=== PATIENT | male | born 1995 | race Two or more races ===

== ENCOUNTER 2018-02-09 10:59 | Emergency (ER) | payer SELFPAY ==
[2018-02-09 11:12] VITALS: BP 119/72; PULSE 67; TEMP 98.1; BMI 25.8
[2018-02-09] MEDS ORDERED: IBUPROFEN 400 MG TABLET (FP) PO ONE ×2 (12:04→12:07)
--- NOTE | 2018-02-09 12:12 | PDOC ---
History of Present Illness - General Chief Complaint: Injury Stated Complaint: SWOLLEN RT ARM Time Seen by Provider: 02/09/18 11:28 History Source: Patient - History of Present Illness Occurred: reports: other Severity: reports: moderate Upper Extremity Pain Location: right: forearm Past History - Past Medical History Allergies/Adverse Reactions: Allergies Allergy/AdvReac Type Severity Reaction Status Date / Time No Known Allergies Allergy Verified 02/09/18 11:12 Home Medications: Ambulatory Orders NK [No Known Home Medication] 12/31/14 COPD: No DVT: No - Immunization History Immunization Up to Date: Yes - Suicide/Smoking/Psychosocial Hx Smoking History: Never smoked Have you smoked in the past 12 months: No Information on smoking cessation initiated: No Hx Alcohol Use: No Drug/Substance Use Hx: No Substance Use Type: Alcohol Review of Systems - Review of Systems Musculoskeletal: No: Joint Pain, Joint Swelling, Muscle Weakness *Physical Exam - Vital Signs Last Vital Signs Temp Pulse Resp BP Pulse Ox 98.1 F 67 18 119/72 99 02/09/18 11:10 02/09/18 11:10 02/09/18 11:10 02/09/18 11:10 02/09/18 11:10 - Physical Exam General Appearance: Yes: Appropriately Dressed. No: Apparent Distress HEENT: positive: Normal Voice Neck: positive: Supple Respiratory/Chest: negative: Respiratory Distress Extremity: positive: Normal Inspection, Normal Range of Motion, Tender, Other (+ ttp to dorsal aspect of R mid/proximal arm, no erythema/swelling, FROMI, NVI). negative: Swelling Medical Decision Making - Medical Decision Making 02/09/18 12:08 22-year-old male, no significant history, here with right arm pain for 2 days. Pain located to extensor aspect of R arm, 7/10 and worse with lifting. No sensory changes, weakness, neck pain. Not taking anything for pain. Patient denies any injury but states he left weights almost daily and might have been lifting more weights than usual recently. Patient well-appearing and stable with reproducible tenderness along the dorsal aspect of right mid to proximal arm that possibly represents muscle strain versus ? tendinitis. Will dc with [id number] pain meds and instruction to rest and refrain from lifting weights until pain has resolved. Patient given orthopedic referral to follow- up as needed 02/09/18 12:12 *DC/Admit/Observation/Transfer Diagnosis at time of Disposition: Right arm pain - Discharge Dispostion Disposition: HOME Condition at time of disposition: Good - Referrals Referrals: Tyrel Dee MD [Staff Physician] - - Patient Instructions Printed Discharge Instructions: Forearm Muscle Strain Additional Instructions: Pain is possibly due to muscle or tendon strain in your arm. Treatment is pain medication like Motrin or Tylenol and resting the extremity until pain has resolved. If pain persist after 2 weeks, please make an appointment to see Dr. Dee of orthopedics for further evaluation - Post Discharge Activity
== END 2018-02-09 12:13 | disposition home or self-care (01) ==
LOC: JERFT 10:59
DX: S56.811A Strain of other muscles, fascia and tendons at forearm level, right arm, initial encounter (principal); X50.0XXA Overexertion from strenuous movement or load, initial encounter; Y93.B3 Activity, free weights; Y92.89 Other specified places as the place of occurrence of the external cause; Y99.8 Other external cause status
CPT/HCPCS: 99281-25